=== PATIENT | female | born 1960 | race Caucasian/White ===

== ENCOUNTER 2020-08-27 06:39 | Observation (INO) ==
[2020-08-24 11:56] LABS: Basophils # 0.1 10*3/uL (0.0-0.2); Basophils % 0.9 % (0.0-0.8); Eosinophils # 0.1 10*3/uL (0.0-0.87); Eosinophils % 1.7 % (0.00-10.9); Hematocrit 45.1 VOL% (35.7-47.0); Hemoglobin 15.3 GM/DL (12.0-16.0); Immature Granulocytes % 0.2 %; Immature Granulocytes Absolute 0.01 #; Lymphocytes # 1.4 10*3/uL (1.4-4.0); Lymphocytes % 26.5 % (21.3-54.2); Mean Corpuscular HGB Conc 33.9 GM/DL (32-36); Mean Corpuscular Volume 93.8 FL (87-102); Mean Platelet Volume 10.8 FL (9.6-12.0); Monocytes % 6.6 % (1.7-12.7); Neutrophils % 64.1 % (38.7-73.9); Platelet Count 205 T/CUMM (130-400); Red Blood Count 4.81 MC/CUMM (3.8-5.5); Red Cell Distribution Width 12.2 % (9.3-17.3); White Blood Count 5.4 T/CUMM (4-12)
[2020-08-24 12:06] LABS: Calcium 9.1 MG/DL (8.5-10.1); Osmolality,Calculated 282.3 MOS/KG (273-304); Potassium 4.8 MMOL/L (3.5-5.1)
[~2020-08-27 06:39] MED LIST: VANCOMYCIN INJ 1,000 MG in SODIUM CHLORIDE 0.9% 250 ML IV ONE
[2020-08-27] MEDS ORDERED: FAMOTIDINE 20 MG TABLET PO ONE (07:09)
[2020-08-27] MEDS ORDERED: DIAZEPAM 5 MG TABLET PO ONE (07:09)
[2020-08-27] MEDS ORDERED: ACETAMINOPHEN 500 MG TABLET PO ONE (07:09)
[2020-08-27] MEDS ORDERED: GABAPENTIN 400 MG CAPSULE PO ONE (07:09)
[2020-08-27] MEDS ORDERED: LACTATED RINGERS 1,000 ML IV SCH (07:30)
[2020-08-27] MEDS ORDERED: DEXAMETHASONE 4 MG/1 ML VIAL ONE ×2 (09:28→09:45)
[2020-08-27] MEDS ORDERED: propofoL 200 MG/20 ML VIAL IV ONE (09:28)
[2020-08-27] MEDS ORDERED: ONDANSETRON 4 MG/2 ML VIAL ONE (09:28)
[2020-08-27] MEDS ORDERED: LIDOCAINE 2% 5 ML VIAL ONE (09:28)
[2020-08-27] MEDS ORDERED: SUCCINYLCHOLINE 200 MG/10 ML VIAL ONE (09:40)
[2020-08-27] MEDS ORDERED: ROCURONIUM 50 MG/5 ML VIAL IV ONE (09:40)
[2020-08-27] MEDS ORDERED: fentaNYL 100 MCG/2 ML VIAL ONE (09:43)
[2020-08-27] MEDS ORDERED: MIDAZOLAM 2 MG/2 ML VIAL ONE (09:44)
[2020-08-27] MEDS ORDERED: ePHEDrine 50 MG/ML VIAL ONE (10:20)
[2020-08-27] MEDS ORDERED: SODIUM CHLORIDE 0.9% 250 ML IV ONE (11:00)
[2020-08-27] MEDS ORDERED: SEVOFLURANE 1 UNIT/15 MINUTE INH ONE (11:00)
[2020-08-27] MEDS ORDERED: ONDANSETRON 4 MG/2 ML VIAL IV ONE (14:09)
[2020-08-27] MEDS ORDERED: SCOPOLAMINE 1.5 MG PATCH TRANSDERM ONE (17:34)
[2020-08-27] MEDS ORDERED: ONDANSETRON 4 MG/2 ML VIAL IV PRN (17:34)
[2020-08-27] MEDS: DEXTROSE 5% NACL 0.45% 1,000 ML IV SCH (17:52)
[2020-08-27] MEDS ORDERED: ACETAMINOPHEN 500 MG TABLET PO PRN (20:50)
[2020-08-28] MEDS: DEXTROSE 5% NACL 0.45% 1,000 ML IV SCH (03:47)
[2020-08-28 10:58] VITALS: BP 93/54
== END 2020-08-28 10:50 | disposition home or self-care (01) ==
LOC: N.OB 06:39 → N.OR 06:39 → N.SDSINP 06:40 → N.OR 16:43 → N.SDSINP 17:18 → N.OB 17:32
PROVIDERS: ADMIT Surgery; ATTEND Surgery

== ENCOUNTER 2021-01-03 19:15 | Inpatient (IN) ==
[2021-01-03] MEDS ORDERED: SODIUM CHLORIDE 0.9% 1,000 ML IV STA (19:41)
[2021-01-03 20:29] LABS: Bilirubin,Urine Negative (Negative); Blood, Urine Small mg/dL (Negative); Glucose,Urine (UA) Negative (Negative); Ketones,Urine Negative (Negative); Nitrite,Urine Negative (Negative); Protein,Urine Negative; RBC,Urine 1 /HPF (0-4); Urine Appearance CLEAR (Clear); Urine Color Straw (Yellow); Urine Specific Gravity 1.005 (1.001-1.035); Urine Urobilinogen < 2.0 EU/DL (0.2-1.0)
[2021-01-03 20:35] LABS: Immature Granulocytes % 12.5 %; Immature Granulocytes Absolute 0.05 #; Lymphocytes # 0.2 10*3/uL (1.4-4.0); Lymphocytes % 57.5 % (21.3-54.2); Mean Corpuscular HGB Conc 32.7 GM/DL (32-36); Mean Platelet Volume 12.2 FL (9.6-12.0); Red Blood Count 1.88 MC/CUMM (3.8-5.5); Red Cell Distribution Width 12.3 % (9.3-17.3)
[2021-01-03 20:47] LABS: Hematocrit 17.1 VOL% (35.7-47.0); Hemoglobin 5.6 GM/DL (12.0-16.0); Platelet Count 15 T/CUMM (130-400); White Blood Count 0.4 T/CUMM (4-12)
[2021-01-03 20:53] LABS: Alanine Aminotransferase 18 U/L (13-56); Albumin 3.1 G/DL (3.4-5.0); Alkaline Phosphatase 88 U/L (45-117); Amylase 20 U/L (25-115); Aspartate Amino Transferase 5 U/L (0-37); Blood Urea Nitrogen 11 MG/DL (7-18); Calcium 8.1 MG/DL (8.5-10.1); Carbon Dioxide 30 MMOL/L (21-32); Estimated Glom Filtration Rate 94 ML/MIN; Glucose 94 MG/DL (74-106); Osmolality,Calculated 275.5 MOS/KG (273-304); Potassium 3.6 MMOL/L (3.5-5.1); Sodium 139 MMOL/L (136-145); Total Protein 5.8 G/DL (6.4-8.2)
[2021-01-03] MEDS ORDERED: SODIUM CHLORIDE 0.9% 1,000 ML IV PRN (21:31)
[2021-01-03 21:54] LABS: Lymphocytes 80 % (20-55); Platelet Estimate Decreased; Segmented Neutrophils 10 % (50-85); Total Cells Counted 100
[2021-01-03] MEDS ORDERED: GLUCAGON 1 MG VIAL IM PRN (22:02)
[2021-01-03] MEDS ORDERED: DEXTROSE 50% 25 GM/50 ML VIAL IV PRN (22:02)
[2021-01-03] MEDS ORDERED: ONDANSETRON 4 MG/2 ML VIAL IV PRN (22:04)
[2021-01-03] MEDS ORDERED: diphenhydrAMINE CAP 25 MG CAPSULE PO PRN (22:04)
[2021-01-03] MEDS ORDERED: SIMETHICONE CHEW 125 MG TABLET PO PRN (22:04)
[2021-01-03] MEDS ORDERED: traZODone 50 MG TABLET PO PRN (22:04)
[2021-01-03] MEDS ORDERED: PRAMOXINE/HYDROCORTISONE RECTAL FOAM 10 GM CAN TOP PRN (22:20)
[2021-01-03] MEDS: POLYETHYLENE GLYCOL POWDER 17 GM PACK PO SCH (23:11)
[2021-01-03] MEDS: SODIUM CHLORIDE 0.9% 1,000 ML IV SCH ×2 (23:12→23:16)
[2021-01-03] MEDS: DOCUSATE SODIUM 100 MG CAPSULE PO SCH (23:12)
[2021-01-04] MEDS: ACETAMINOPHEN 325 MG TABLET PO PRN
[2021-01-04 05:31] LABS: Basophils % 3.7 % (0.0-0.8); Hematocrit 19.6 VOL% (35.7-47.0); Hemoglobin 6.6 GM/DL (12.0-16.0); Immature Granulocytes % 1.9 %; Immature Granulocytes Absolute 0.01 #; Lymphocytes # 0.3 10*3/uL (1.4-4.0); Lymphocytes % 55.6 % (21.3-54.2); Mean Corpuscular HGB Conc 33.7 GM/DL (32-36); Mean Corpuscular Volume 90.3 FL (87-102); Mean Platelet Volume 13.2 FL (9.6-12.0); Monocytes % 14.8 % (1.7-12.7); Red Blood Count 2.17 MC/CUMM (3.8-5.5); Red Cell Distribution Width 12.5 % (9.3-17.3)
[2021-01-04 05:34] LABS: Platelet Count 14 T/CUMM (130-400); White Blood Count 0.5 T/CUMM (4-12)
[2021-01-04 06:01] LABS: Calcium 7.9 MG/DL (8.5-10.1); Potassium 3.7 MMOL/L (3.5-5.1); Thyroid Stimulating Hormone 5.11 uIU/ml (0.358-3.74)
[2021-01-04] MEDS: LEVOTHYROXINE 25 MCG TABLET PO SCH (06:05)
[2021-01-04] MEDS: SODIUM CHLORIDE 0.9% 1,000 ML IV SCH ×3 (06:05→22:02)
[2021-01-04 06:21] LABS: Hypochromasia 2+; Lymphocytes 60 % (20-55); Microcytosis 1+; Platelet Estimate Decreased; Total Cells Counted 100
[2021-01-04] MEDS: PANTOPRAZOLE 40 MG TABLET PO SCH (09:07)
[2021-01-04] MEDS: DOCUSATE SODIUM 100 MG CAPSULE PO SCH ×2 (09:07→20:15)
[2021-01-04] MEDS: POLYETHYLENE GLYCOL POWDER 17 GM PACK PO SCH ×2 (09:07→20:15)
[2021-01-04] MEDS ORDERED: HYDROCORTISONE 2.5% RECTAL CREAM 30 GM TUBE TOP PRN (13:37)
[2021-01-04] MEDS ORDERED: SODIUM CHLORIDE 0.9% 1,000 ML IV PRN (15:04)
[2021-01-04 17:37] LABS: Basophils % 4.6 % (0.0-0.8); Hemoglobin 8.1 GM/DL (12.0-16.0); Immature Granulocytes % 6.9 %; Immature Granulocytes Absolute 0.06 #; Lymphocytes # 0.4 10*3/uL (1.4-4.0); Lymphocytes % 47.1 % (21.3-54.2); Mean Corpuscular HGB Conc 32.4 GM/DL (32-36); Mean Corpuscular Volume 91.9 FL (87-102); Mean Platelet Volume 13.2 FL (9.6-12.0); Monocytes % 17.2 % (1.7-12.7); Neutrophils % 24.2 % (38.7-73.9); Red Blood Count 2.72 MC/CUMM (3.8-5.5); Red Cell Distribution Width 13.2 % (9.3-17.3)
[2021-01-04 17:43] LABS: White Blood Count 0.9 T/CUMM (4-12)
[2021-01-04 17:44] LABS: Platelet Count 17 T/CUMM (130-400)
[2021-01-04 19:50] LABS: Band Neutrophils 2 % (0-10); Lymphocytes 46 % (20-55); Segmented Neutrophils 26 % (50-85); Total Cells Counted 100
[2021-01-04 19:51] LABS: Atypical Lymphocytes 1+; Microcytosis 1+; Platelet Estimate Decreased; Polychromasia 1+
[2021-01-05] MEDS: ACETAMINOPHEN 325 MG TABLET PO PRN ×3 (02:39→20:21)
[2021-01-05 03:55] LABS: Basophils % 3.2 % (0.0-0.8); Hematocrit 22.3 VOL% (35.7-47.0); Hemoglobin 7.3 GM/DL (12.0-16.0); Immature Granulocytes % 11.7 %; Immature Granulocytes Absolute 0.11 #; Lymphocytes # 0.4 10*3/uL (1.4-4.0); Lymphocytes % 42.6 % (21.3-54.2); Mean Corpuscular HGB Conc 32.7 GM/DL (32-36); Mean Platelet Volume 11.2 FL (9.6-12.0); Neutrophils % 25.5 % (38.7-73.9); Red Blood Count 2.45 MC/CUMM (3.8-5.5)
[2021-01-05 04:01] LABS: Platelet Count 36 T/CUMM (130-400); White Blood Count 0.9 T/CUMM (4-12)
[2021-01-05 04:18] LABS: Band Neutrophils 2 % (0-10); Lymphocytes 60 % (20-55); Platelet Estimate Decreased; Segmented Neutrophils 18 % (50-85); Total Cells Counted 100
[2021-01-05 04:19] LABS: Atypical Lymphocytes Few; Hypochromasia 2+; Microcytosis 1+
[2021-01-05] MEDS: LEVOTHYROXINE 25 MCG TABLET PO SCH (06:09)
[2021-01-05] MEDS ORDERED: SODIUM CHLORIDE 0.9% 1,000 ML IV PRN ×2 (08:54→09:17)
[2021-01-05] MEDS: POLYETHYLENE GLYCOL POWDER 17 GM PACK PO SCH ×2 (09:01→20:21)
[2021-01-05] MEDS: PANTOPRAZOLE 40 MG TABLET PO SCH (09:01)
[2021-01-05] MEDS: DOCUSATE SODIUM 100 MG CAPSULE PO SCH ×2 (09:01→20:20)
[2021-01-05] MEDS: SODIUM CHLORIDE 0.9% 1,000 ML IV SCH ×2 (09:20→23:17)
[2021-01-05] MEDS: FILGRASTIM-SNDZ 300 MCG/0.5 ML SYRINGE SUBCUT SCH (10:23)
[2021-01-06 05:43] LABS: Basophils # 0.1 10*3/uL (0.0-0.2); Basophils % 1.9 % (0.0-0.8); Hematocrit 30.8 VOL% (35.7-47.0); Hemoglobin 10.1 GM/DL (12.0-16.0); Immature Granulocytes % 53.2 %; Immature Granulocytes Absolute 1.42 #; Lymphocytes # 0.3 10*3/uL (1.4-4.0); Lymphocytes % 12.7 % (21.3-54.2); Mean Corpuscular HGB Conc 32.8 GM/DL (32-36); Mean Corpuscular Volume 90.3 FL (87-102); Mean Platelet Volume 11.7 FL (9.6-12.0); Monocytes % 19.9 % (1.7-12.7); NRBC # 0.08 10*3/uL; Neutrophils % 12.3 % (38.7-73.9); Red Blood Count 3.41 MC/CUMM (3.8-5.5); Red Cell Distribution Width 13.5 % (9.3-17.3); White Blood Count 2.7 T/CUMM (4-12)
[2021-01-06 06:01] LABS: Platelet Count 35 T/CUMM (130-400)
[2021-01-06 06:08] LABS: Albumin 2.7 G/DL (3.4-5.0); Bilirubin,Total 0.6 MG/DL (0.20-1.00); Calcium 7.9 MG/DL (8.5-10.1); Osmolality,Calculated 281.8 MOS/KG (273-304); Potassium 3.7 MMOL/L (3.5-5.1); Total Protein 5.3 G/DL (6.4-8.2)
[2021-01-06] MEDS: LEVOTHYROXINE 25 MCG TABLET PO SCH (06:10)
[2021-01-06 06:12] LABS: Hypochromasia 1+; Ovalocytes Few; Polychromasia Slight
[2021-01-06 06:13] LABS: Microcytosis 2+; Platelet Estimate Decreased
[2021-01-06 06:14] LABS: Tear Drop Cells Slight
[2021-01-06] MEDS: SODIUM CHLORIDE 0.9% 1,000 ML IV SCH (06:35)
[2021-01-06] MEDS: FILGRASTIM-SNDZ 300 MCG/0.5 ML SYRINGE SUBCUT SCH (08:49)
[2021-01-06] MEDS: PANTOPRAZOLE 40 MG TABLET PO SCH (08:51)
[2021-01-06] MEDS: DOCUSATE SODIUM 100 MG CAPSULE PO SCH (08:51)
[2021-01-06] MEDS: POLYETHYLENE GLYCOL POWDER 17 GM PACK PO SCH (09:44)
[2021-01-06 11:55] VITALS: BP 134/44
[2021-01-06] MEDS ORDERED: HEPARIN LOCK FLUSH 500 UNIT/5 ML SYRINGE IV ONE (14:19)
== END 2021-01-06 16:10 | disposition home or self-care (01) | DRG 809 ==
LOC: N.ED 19:15 → N.EDINP 21:26 → SUATTDRO 21:26 → N.2W 01-04 00:31
PROVIDERS: ADMIT Internal Medicine; ATTEND Internal Medicine